=== PATIENT | female | born 1965 | race Caucasian/White ===

== ENCOUNTER 2017-11-23 14:45 | Emergency (ER) | payer OTHER ==
[~2017-11-23] VITALS: Ht 154.9 cm; Wt 72.7 kg
[2017-11-23 17:15] VITALS: BP 108/64
[2017-11-23] MEDS ORDERED: DIAZEPAM 5 MG TABLET PO ONE (17:15)
[2017-11-23] MEDS ORDERED: KETOROLAC TROMETHAMINE 60 MG/2 ML VIAL IM ONE (17:15)
== END 2017-11-23 17:38 | disposition home or self-care (01) ==
LOC: EMS 14:47
DX: S43.102A Unspecified dislocation of left acromioclavicular joint, initial encounter (principal); R51 Headache; M54.2 Cervicalgia; X58.XXXA Exposure to other specified factors, initial encounter; Y93.89 Activity, other specified; Y92.89 Other specified places as the place of occurrence of the external cause; Y99.8 Other external cause status
CPT/HCPCS: 73030; 96372; 99284; J1885